=== PATIENT | male | born 1960 | race Caucasian/White ===

== ENCOUNTER → 2018-01-22 | Outpatient (CLI) | payer SELFPAY | END | disposition home or self-care (01) | LOC: KCIC CT 08:39 | DX: I25.10 Atherosclerotic heart disease of native coronary artery without angina pectoris (principal); J98.11 Atelectasis; J84.10 Pulmonary fibrosis, unspecified; I10 Essential (primary) hypertension; Z87.891 Personal history of nicotine dependence | CPT/HCPCS: 75571 ==

== ENCOUNTER → 2020-02-09 | Outpatient (CLI) | payer BC ==
--- NOTE | 2020-02-09 11:35 | KCIC ---
LUMBAR SPINE WO CONTRAST Date: 02/09/2020 9:30 AM Indication: LEG WEAKNESS BILATERALLY. Progressing unsteady gait, chronic. Comparison: Lumbar spine radiograph 02/02/2020. Technique: Multi-planar multi-weighted magnetic resonance imaging of the lumbar spine was performed without intravenous contrast using the standard lumbar spine protocol. FINDINGS: 5 mm anterolisthesis at L4-5 due to probable L4 pars defects. 7 mm anterolisthesis at L5-S1 due to probable L4 pars defect. No acute fracture. Moderate multilevel degenerative disc desiccation and disc height loss. Trace degenerative endplate edema at L4-5. The conus terminates at a normal level. No abnormal signal is seen within the visualized distal spinal cord. No clumping of intrathecal nerve roots. No soft tissue abnormality in the visualized abdomen or pelvis. T12-L1: Disc bulge. Mild facet arthropathy. No significant spinal stenosis or neural foraminal narrowing. L1-L2: Disc bulge. Mild facet arthropathy. No significant spinal stenosis. Mild bilateral neural foraminal narrowing. L2-L3: Disc bulge. Mild facet arthropathy. No significant spinal stenosis. Mild bilateral neural foraminal narrowing. L3-L4: Disc bulge. Moderate facet arthropathy. Mild spinal stenosis and lateral recess narrowing. Moderate right and moderate to severe left neural foraminal narrowing. L4-L5: Disc bulge. Mild facet arthropathy. No significant spinal canal stenosis. Mild lateral recess narrowing. Moderate to severe bilateral neural foraminal narrowing. L5-S1: Disc bulge. Mild facet arthropathy. No significant spinal stenosis. Moderate to severe bilateral neural foraminal narrowing. IMPRESSION: 1. Moderate to severe lumbar spondylosis, detailed level by level above. 2. Grade 1 anterolisthesis at L4-5 and L5-S1, likely due to pars defects. Electronically signed by: Aníbal Ladd MD (02/09/2020 11:32 AM) [id number]
== END ==
LOC: KCIC MRI 09:15
PROVIDERS: ATTEND Physician Assistant
DX: M47.816 Spondylosis without myelopathy or radiculopathy, lumbar region (principal); M48.061 Spinal stenosis, lumbar region without neurogenic claudication; M51.36 Other intervertebral disc degeneration, lumbar region
CPT/HCPCS: 72148

== ENCOUNTER → 2020-03-14 | Outpatient (CLI) | payer BC ==
[~2020-03-14] MED LIST: ACET325T9 PO; ATOR10TA60 PO; BENA40TA3 PO; IOHEXOL 180 MG/ML 10 ML VIAL. ONE; methylPREDNISolone ACETATE 40 MG/ML VIAL. ONE; methylPREDNISolone ACETATE 80 MG/ML VIAL. ONE
--- NOTE | 2020-03-14 11:22 | PDOC2 ---
INITIAL PAIN CONSULT DATE OF SERVICE: DOS: DATE: 03/14/20 TIME: 11:16 CHIEF COMPLAINT: Chief Complaint: Low back and left lower extremity pain HISTORY OF PRESENT ILLNESS: 60-year-old male presents history of pain in the low back and left lower extremity for about a year not result of any specific injury or accident he is aware but is getting worse with time worse with walking standing changing positions better with sitting or laying down but awakening from sleep occasionally not every night patient reports better with sitting or laying down worse with walking standing climbing patient works as a hazmat truck driver and is in out of the truck quite a bit during his working shift and is becoming more painful in the left low back patient describes the pain is tingling stabbing aching dull and with numbness and radiating pain in the left lower extremity posterior gluteus posterior lateral thigh lateral anterior thigh but across the low back bilaterally worse on the left side. Patient reports no loss of motor function but significant fatigability with the left leg with activity patient has been doing some stretching on his own was had no formal physical therapy recently chiropractic treatment did have some massage therapy which helped quite a bit for about a week and the pain returned fairly significantly. Patient rates his disability rating 0-10 10 being worst is a 0 in all categories reports he is just doing his normal daily activities putting up with the pain. He did have an MRI scan lumbar spine show degenerative disc changes at the L3-4 L4-5 and L5-S1 with moderate to severe bilateral neuroforaminal narrowing L4-5 and L5-S1 and moderate right and moderate to severe left foraminal narrowing at L3- L4. Patient reports no loss of motor function no bowel or bladder incontinence. PAST MEDICAL HISTORY: PMH: Positive for hypertension arthritis and hyperlipidemia otherwise patient is been in fairly good health by his report. PREVIOUS SURGERIES: Past Surgical Hx: No previous surgeries FAMILY HISTORY: Family Hx: No major medical problems or conditions he is aware of SOCIAL HISTORY: Social Hx: Patient does not drink alcohol does not smoke patient reports he did have history of drug abuse in the past but is been clean for many years now patient is lives with his spouse lives locally in [facility] REVIEW OF SYSTEMS: ROS: Positive for those items mentioned in history of present illness, all systems are reviewed, otherwise negative, is complete full and well-documented on patient's chart PHYSICAL EXAM: VS: Blood pressure is 132/89 pulse 94 respirations 16 temperature 90.1 F height 6 foot weight is 237 pounds PE: PHYSICAL EXAMINATION: GENERAL: The patient is awake, alert, oriented, appropriate, very pleasant demeanor HEENT: Shows normocephalic, atraumatic. Extraocular movements are intact and symmetrical. Oral cavity: Mucous membranes moist and pink. Dentition is intact. NECK: Shows anterior throat supple without palpable lymphadenopathy noted. Swallow reflex symmetrical. CHEST: Shows normal on inspection. Breath sounds are clear bilaterally, no rales rhonchi or wheezes auscultated. HEART: Shows S1, S2 clear. No murmurs auscultated. ABDOMEN: Soft, nontender, nondistended, obese. No palpable organomegaly is noted. No rebound or guarding demonstrated. BACK: Shows spine grossly in the midline. Normal-appearing cervical lordotic curvature. There is slightly increased thoracic kyphosis, some minor flattening of the lumbar lordotic curvature. Lumbar paraspinous muscles show symmetrical on inspection, on palpation shows some moderate tenderness diffusely throughout the upper, middle and lower distribution of the paraspinous muscles bilaterally and also into the lower thoracic paraspinous musculature, firm and tender, but without specific trigger points, without radiation of pain. The patient has good rotational motion of the lumbar spine, both laterally as well as extension and flexion without significant difficulty. No tenderness over the spinous proc esses, sacrum or sacroiliac regions. EXTREMITIES: Lower extremities show deep tendon reflexes 2+ in the patellar and tendo calcaneus tendons. Motor exam is 4 on a scale of 5 with right dorsiflexion, extension, quadriceps and hamstring flexion and 4/5 on the left. Peripheral pulses are 1+ posterior tibial. No peripheral edema is noted bilaterally. Lower extremities are warm and dry to touch, equal in color and appearance. Straight leg raise noted to be negative on the righht ,and left side is also negative. Gaenslen's and Alcides's maneuvers are negative as well. The patient is able to stand, stand on his toes without significant difficulty or loss of balance does appear to favor the left lower extremity with ambulation but only slightly not use any assistive devices to ambulate.. SKIN: Shows warm and dry, good turgor. No edema. No sores, rashes or bruising throughout. IMPRESSION: Impression: 60-year-old male with approximate 1 year history of low back left lower extre mity pain MRI scan lumbar spine as noted Hypertension Arthritis Plan: Options were discussed with the patient including conservative medical management physical therapies interventional techniques and he like to pursue interventional techniques. We discussed a lumbar epidural steroid injection his description as well as anatomical models to describe the procedure. Risks were discussed including but not limited to: Bleeding, infection, possibility of epidural hematoma and subsequent neurological compromise, dural puncture, headaches, spinal cord and/or nerve damage, side effects of steroid medication, and poor results regarding pain control. Patient understands wished to proceed. Patient return to clinic in approximate 2 weeks for follow-up was counseled as to return appointment active level and side effects to be aware of. Procedure is lumbar epidural steroid injection under local anesthetic using sterile prep and drape at the L4-5 level using C-arm fluoroscopic guidance in both AP and lateral views medications injected is 120 mg Depo-Medrol + 10 mL preservative-free normal saline and 2 mL contrast- condition at discharge is sta ble patient tolerated procedure well had no complications. MILDRED VAZQUEZ MD Mar 14, 2020 11:22
== END | disposition home or self-care (01) ==
LOC: PNCL 09:09
PROVIDERS: ATTEND Anesthesiology
DX: M54.5 Low back pain (principal); M79.662 Pain in left lower leg; I10 Essential (primary) hypertension; E78.5 Hyperlipidemia, unspecified; M19.90 Unspecified osteoarthritis, unspecified site; Z79.899 Other long term (current) drug therapy
CPT/HCPCS: 62323; J1030; J1040; Q9965

== ENCOUNTER → 2020-03-29 | Outpatient (CLI) | payer BC ==
[~2020-03-29] MED LIST changes: -IOHEXOL 180 MG/ML 10 ML VIAL. ONE; -methylPREDNISolone ACETATE 40 MG/ML VIAL. ONE; -methylPREDNISolone ACETATE 80 MG/ML VIAL. ONE
--- NOTE | 2020-03-29 16:53 | RAD ---
EXAM: Bilateral knees, 3 views. HISTORY: Pain. COMPARISON: 02/02/2020. FINDINGS: 3 views of both knees are obtained. There is no fracture, dislocation or subluxation. There is left greater than right medial compartment joint space narrowing with subchondral sclerosis and marginal spurring. There is also left lateral and left greater than right patellofemoral compartment spurring. There is a left suprapatellar joint loose body. There is no significant joint effusion. IMPRESSION: 1. Severe left and mild right medial compartment predominant osteoarthritis of both knees. 2. Left knee joint loose body. Electronically signed by: Anne Escobar MD (03/29/2020 4:50 PM) [id number]
== END | disposition home or self-care (01) ==
LOC: RAD 10:00
PROVIDERS: ATTEND Anesthesiology
DX: M17.0 Bilateral primary osteoarthritis of knee (principal)
CPT/HCPCS: 73562

== ENCOUNTER → 2020-03-29 | Outpatient (CLI) | payer BC ==
[~2020-03-29] MED LIST changes: +IOHEXOL 180 MG/ML 10 ML VIAL. ONE; +methylPREDNISolone ACETATE 40 MG/ML VIAL. ONE; +methylPREDNISolone ACETATE 80 MG/ML VIAL. ONE
--- NOTE | 2020-03-29 09:37 | PDOC ---
Progress Note - Pain Clinic Date of Service: DOS: DATE: 03/29/20 TIME: 09:34 Diagnosis: Dx: Lumbar radiculopathy with lumbar degenerative disc disease History or Present Illness: HPI: 60-year-old male returns follow-up status post lumbar epidurals injection x1. Patient was about 75% improvement in the back but still some pain in the leg specially on the left side patient ports his knees been very painful as well with weightbearing standing and walking. Patient was otherwise doing much better increase his distance walking doing activities at home as well as longer sitting with greater ease and comfort travel with greater ease does not awaken him from sleep at night patient reports pain is a 6 on scale 10 at all times over the past week worst average and least is a 6 today. Patient reports that shooting pain in the lower extremities worse on the left side on and off in intensity but again his knees are becoming more more noticeable as his back is feeling better. Patient reports no new motor or sensory deficits no new bowel or bladder incontinence or other complaints. Physical Exam: VS: Blood pressure is 120/91 pulse 94 respiration 16 temperature 97.7 F weight is 243 pounds PE: PHYSICAL EXAMINATION: GENERAL: The patient is awake, alert, oriented, appropriate, very pleasant demeanor HEENT: Shows normocephalic, atraumatic. Extraocular movements are intact and symmetrical. NECK: Shows anterior throat supple without palpable lymphadenopathy noted. Swallow reflex symmetrical. CHEST: Shows normal on inspection. Breath sounds are clear bilaterally. HEART: Shows S1, S2 clear. No murmurs auscultated. ABDOMEN: Soft, nontender, nondistended. No palpable organomegaly is noted. No rebound or guarding demonstrated. BACK: Shows spine grossly in the midline. Normal-appearing cervical lordotic curvature. There is slightly increased thoracic kyphosis, some minor flattening of the lumbar lordotic curvature. Lumbar paraspinous muscles show symmetrical on inspection, on palpation shows some moderate tenderness diffusely throughout the upper, middle and lower distribution of the paraspinous muscles bilaterally without trigger points, without radiation of pain. The patient has good rotational motion of the lumbar spine, both laterally as well as extension and flexion without significant difficulty. No tenderness over the spinous processes, sacrum or sacroiliac regions. EXTREMITIES: Lower extremities show deep tendon reflexes 2+ in the patellar and tendo calcaneus tendons. Motor exam is 4 on a scale of 5 with right dorsiflexion, extension, quadriceps and hamstring flexion and 4/5 on the left. Peripheral pulses are 1+ posterior tibial. No peripheral edema is noted bilaterally. Lower extremities are warm and dry to touch, equal in color and appearance. SKIN: Shows warm and dry, good turgor. No edema. No sores, rashes or bruising throughout. Procedure: Procedure: Options were discussed with the patient. Patient's old chart was reviewed his his current medication regimen updated current review of systems updated today as well. We will proceed with a second in the series lumbar epidural steroid injection today with fluoroscopic guidance. Risks were discussed including but not limited to: Bleeding, infection, possibility of epidural hematoma and subsequent neurological compromise, dural puncture, headaches, spinal cord and/o r nerve damage, side effects of steroid medication, and poor results regarding pain control. Patient understands wished to proceed. Patient return to clinic in possibly 2 weeks for follow-up was counseled as to return appointment activity level and side effects to be aware of. Medication Injected: Med Injected: Procedure is lumbar epidural steroid injection under local anesthetic using sterile prep and drape at the L4-5 level using C-arm fluoroscopic guidance in both AP and lateral views medications injected is 120 mg Depo-Medrol + 10 mL preservative-free normal saline and 2 mL contrast- condition at discharge is stable patient tolerated procedure well had no complications. Condition at Discharge: Condition at Discharge: Condition at discharge is stable patient tolerated the procedure well had no complications. MILDRED VAZQUEZ MD Mar 29, 2020 09:37
== END | disposition home or self-care (01) ==
LOC: PNCL 08:58
PROVIDERS: ATTEND Anesthesiology
DX: M51.16 Intervertebral disc disorders with radiculopathy, lumbar region (principal); I10 Essential (primary) hypertension; E78.5 Hyperlipidemia, unspecified; Z79.899 Other long term (current) drug therapy
CPT/HCPCS: 62323; J1030; J1040; Q9965

== ENCOUNTER → 2020-04-12 | Outpatient (CLI) | payer BC ==
[~2020-04-12] MED LIST changes: +BUPIVACAINE MPF 0.25% 10 ML VIAL. ONE
--- NOTE | 2020-04-12 09:29 | PDOC ---
Progress Note - Pain Clinic Date of Service: DOS: DATE: 04/12/20 TIME: 09:24 Diagnosis: Dx: Lumbar radiculopathy with lumbar degenerative disc disease Bilateral knee joint pain with primary osteoarthritis History or Present Illness: HPI: 60-year male returns follow-up status post lumbar epidural steroid action x2. Patient which 100% improvement in his back and lower extremity pain his chief complaint today is bilateral knee pain we discussed this with him on his last visit and sent him for x-rays of the knees showing severe left and mild right medial compartment predominant osteoarthritis of both knees with left knee joint loose body. Patient reports his back is doing 100% better he is very pleased with his progress there has been increase his distance walking doing work activities household activities greater ease and comfort sleeping better at night his main complaint was pain in the knees now again worse on the left than the right with walking standing putting weight on his knees better with sitting or laying down does not have significant pain without weightbearing. Rates his back pain is a 0 in all categories least worst an average and his knee pain is a 9 on a scale of 10 at its worst 6 on average and a 5 at its least. Patient ports no loss of motor function but significant pain and fatigability with the knees especially now that his back is feeling much better. Physical Exam: VS: Blood pressure is 123/93 pulse 91 respirations 18 temperature 97.7 F weight is 243 pounds PE: PHYSICAL EXAMINATION: GENERAL: The patient is awake, alert, oriented, appropriate, very pleasant demeanor HEENT: Shows normocephalic, atraumatic. Extraocular movements are intact and symmetrical. NECK: Shows anterior throat supple without palpable lymphadenopathy noted. Swallow reflex symmetrical. CHEST: Shows normal on inspection. Breath sounds are clear bilaterally. HEART: Shows S1, S2 clear. No murmurs auscultated. ABDOMEN: Soft, nontender, nondistended. No palpable organomegaly is noted. No rebound or guarding demonstrated. BACK: Shows spine grossly in the midline. Normal-appearing cervical lordotic curvature. There is slightly increased thoracic kyphosis, some minor flattening of the lumbar lordotic curvature. Lumbar paraspinous muscles show symmetrical on inspection, on palpation shows some moderate tenderness diffusely throughout the upper, middle and lower distribution of the paraspinous muscles bilaterally, without specific trigger points, without radiation of pain. The patient has good rotational motion of the lumbar spine, both laterally as well as extension and flexion without significant difficulty. No tenderness over the spinous processes, sacrum or sacroiliac regions. EXTREMITIES: Lower extremities show deep tendon reflexes 2+ in the patellar and tendo calcaneus tendons. Motor exam is 4 on a scale of 5 with right dorsiflexion, extension, quadriceps and hamstring flexion and 4/5 on the left. Peripheral pulses are 1+ posterior tibial. No peripheral edema is noted bila terally. Lower extremities are warm and dry to touch, equal in color and appearance. Patient's knees shows good range of motion with hinge function without crepitus without ratcheting bilaterally. Mild tenderness is noted in the left foot medial collateral ligament palpation but only very mild left side is nontender with palpation on the medial aspect. With standing weightbearing patient reports pain worse in the left knee but present bilaterally in the right and left knees. SKIN: Shows warm and dry, good turgor. No edema. No sores, rashes or bruising throughout. Procedure: Procedure: Options were discussed with the patient. Patient's old chart was reviewed his current medication regimen updated current review of systems updated today as well. We will proceed with bilateral intra-articular knee joint injections today with fluoroscopic guidance. Risks were discussed including but not limited to bleeding infection possibility of intravascular injection sequelae spread of local anesthetic numbness side effects of steroid medication exposure fluoroscopy and portal scarring pain control. Patient understands wished to proceed. Patient return to clinic in approximately 3 weeks for follow-up was counseled as to return appointment activity level and side effects to be aware. Medication Injected: Med Injected: Under sterile prep and drape patient's bilateral knees were visualized with C- arm fluoroscopic guidance using 1% lidocaine to anesthetize the area overlying the intra-articular space first right and then left knee using a 22-gauge Quincke stylette and needle the joint was entered under direct visualization without difficulty stylet was removed and 1.5 cc of contrast each knee was placed with good spread within the knee joint itself without washout bilaterally. At this time 3 cc of 0.25 bupivacaine each knee and 60 mg of Depo- Medrol each knee was then injected needle was withdrawn and sterile bandages were applied. Patient tolerated the procedure well and had no complications. Condition at Discharge: Condition at Discharge: Condition at discharge stable patient tolerated the procedure well had no complications. MILDRED VAZQUEZ MD Apr 12, 2020 09:29
== END ==
LOC: PNCL 08:53
PROVIDERS: ATTEND Anesthesiology
DX: M17.0 Bilateral primary osteoarthritis of knee (principal); M51.16 Intervertebral disc disorders with radiculopathy, lumbar region; I10 Essential (primary) hypertension; E78.5 Hyperlipidemia, unspecified; Z79.899 Other long term (current) drug therapy
CPT/HCPCS: 20610; 77002; J1030; J1040; J3490; Q9965

== ENCOUNTER → 2020-06-01 | Outpatient (CLI) | payer BC ==
--- NOTE | 2020-06-01 09:38 | PDOC ---
Progress Note - Pain Clinic Date of Service: DOS: DATE: 06/01/20 TIME: 09:34 Diagnosis: Dx: Bilateral knee joint pain with primary osteoarthritis Lumbar to colopathy with lumbar degenerative disc disease History or Present Illness: HPI: 60-year-old male returns follow-up status post bilateral knee joint injection as well as lumbar epidural steroid injections. Patient reports his back is still 100% improved his main complaint is his bilateral knee pain patient with injections in the knees April 12, 2020 with very good results about 75% improvement until the last week or so the pain began to return with walking standing better with sitting or laying down only with weightbearing his pain mainly noticeable. Patient reports it is worse with walking changing positions standing all of his weight on 1 leg or the other such as climbing stairs or stepping on a curb. Patient reports the pain is aching also alternating with sharp in the knees themselves without specific radiation. Patient rates pain a 6 on scale 10 is worst 6 on average to its least and is a 5 today. Patient reports no new motor or sensory deficits no new bowel or bladder incontinence or other complaints. Physical Exam: VS: Pressure is 126/89 pulse 71 respirations 20 temperature is 98.6 was Fahrenheit weight is 247 pounds PE: PHYSICAL EXAMINATION: GENERAL: The patient is awake, alert, oriented, appropriate, very pleasant demeanor HEENT: Shows normocephalic, atraumatic. Extraocular movements are intact and sy mmetrical. NECK: Shows anterior throat supple without palpable lymphadenopathy noted. Swallow reflex symmetrical. CHEST: Shows normal on inspection. Breath sounds are clear bilaterally no rales or rhonchi. HEART: Shows S1, S2 clear. No murmurs auscultated. ABDOMEN: Soft, nontender, nondistended obese. No palpable organomegaly is noted. No rebound or guarding demonstrated. BACK: Shows spine grossly in the midline. Normal-appearing cervical lordotic curvature. There is slightly increased thoracic kyphosis, some minor flattening of the lumbar lordotic curvature. Lumbar paraspinous muscles show symmetrical on inspection, on palpation shows some moderate tenderness diffusely throughout the upper, middle and lower distribution of the paraspinous muscles without specific trigger points, without radiation of pain. The patient has good rotational motion of the lumbar spine, both laterally as well as extension and flexion without significant difficulty. No tenderness over the spinous processes, sacrum or sacroiliac regions. EXTREMITIES: Lower extremities show deep tendon reflexes 2+ in the patellar and tendo calcaneus tendons. Motor exam is 4 on a scale of 5 with right dorsiflexion, extension, quadriceps and hamstring flexion and 4/5 on the left. Peripheral pulses are 1+ posterior tibial. No peripheral edema is noted bilaterally. Lower extremities are warm and dry to touch, equal in color and appearance. Patient's knees shows no significant tenderness with displacement of the patella negative #good hinged range of motion with passive motion without ratcheting or crepitus. SKIN: Shows warm and dry, good turgor. No edema. No sores, rashes or bruising throughout. Procedure: Procedure: Options were discussed with the patient. Patient chart reviewed his his current medication regimen updated current review of systems updated today as well. We will proceed with bilateral intra-articular knee joint injections today with fluoroscopic guidance. Risks are discussed including but not limited to bleeding infection possibility of intravascular injection sequelae spread local anesthetic numbness side effects steroid medication exposure fluoroscopy and poor results regarding pain control. Patient understands wished to proceed. Patient will return to clinic in approximately 6 weeks or sooner as necessary. Medication Injected: Med Injected: Sterile prep and drape, using C-arm fluoroscopic guidance patient's bilateral knees were visualized and using 22-gauge Quincke needle with stylette joint space was entered under direct visualization without difficulty 2 cc of contrast was injected in each knee with good spread within the knee joint itself without washout bilaterally. Each knee received 3 cc of 0.25% bupivacaine and 60 mg of Depo-Medrol sterile bandages were then applied after needles were removed. Patient tolerated the procedure well and had no complications. Condition at Discharge: Condition at Discharge: Condition at discharge is stable, patient tolerated procedure well had no complications. MILDRED VAZQUEZ MD Jun 01, 2020 09:38
== END | disposition home or self-care (01) ==
LOC: PNCL 08:59
PROVIDERS: ATTEND Anesthesiology
DX: M17.0 Bilateral primary osteoarthritis of knee (principal); M51.36 Other intervertebral disc degeneration, lumbar region; Z79.899 Other long term (current) drug therapy
CPT/HCPCS: 20610; 77002; J1030; J1040; J3490; Q9965